=== PATIENT | female | born 1960 | race Caucasian/White ===

== ENCOUNTER 2017-01-22 08:28 | Day surgery (SDC) | payer MEDICARE, MEDICAID ==
[2017-01-22] VITALS (13 sets, daily range): BP systolic 112–132; BP diastolic 67–83; PULSE 67–91; RESP 12–20; O2SAT 96–100
[~2017-01-22] VITALS: Ht 170.2 cm; Wt 97.1 kg
--- NOTE | 2017-01-22 07:50 | PCM.HPANE ---
Patient Data Surgeon Admitting Provider: Attending Provider:Speedy Porter MD Primary Care Physician:Myron Horn MD Other Provider:Erwin Cordova Anesthesia Reason for Visit Rectocele Ht/WT & BMI Height (Feet): 5 Height (Inches): 7 Weight (Kilograms): 101.968 Body Mass Index 35.00 Allergies Coded Allergies: iron (Verified Allergy, Severe, anaphylaxis,respiratory difficulty, ) gabapentin (Verified Adverse Reaction, Severe, itching, 01/22/17) vortioxetine (Verified Adverse Reaction, Severe, extreme anger, 01/22/17) Past Anesthesia History Anesthesia History: Denies:: Anesthesia Reactions, Malignant Hyperthermia Diabetes History Hx Diabetes?: No MRSA MRSA: No Medications Reported Medications Trazodone 100 Mg [id number] Mg PO HS Ref 0 01/19/17 Albuterol HFA (Proair HFA)8.5 Gm Hfa.aer.ad2 Puffs INHALATION Q4H PRN PRN #1 INHALER 01/19/17 oxyCODONE-Acetaminophen 10-325 mg 1 Each Tablet1 Tablet PO Q8H PRN For Pain Ref 0 01/19/17 Ibuprofen 800 Mg [id number] Mg PO TID PRN For Pain Ref 0 01/19/17 Fluticasone Propionate (Flonase Allergy Relief)50 Mcg/Actuation [place].susp9.9 Ml NS DAILY 01/19/17 Fluconazole 150 Mg [id number] Mg PO ONCE #1 TABLET Ref 0 01/19/17 Estradiol 1 Mg Tablet1 Mg PO DAILY Ref 0 01/19/17 Cholecalciferol (Vitamin D3) (Vitamin D)50,000 Unit Beikcrv09,000 Unit PO WEEKLY 01/19/17 Ciclopirox Olamine (Ciclopirox)15 Gm Cream..g.1 Applic TP BID 0.77% 01/19/17 Amphet Asp/Amphet/D-Amphet (Adderall)20 Mg [id number] Mg PO BID Ref 0 01/19/17 Discontinued Reported Medications Therapeutic Multivit/Minerals-Expunged Drug, 1 Ea Tab1 Tab PO DAILY Ref 0 11/28/08 [ginko biloba] No Conflict Check DAILY Ref 0 11/28/08 [neurontin] No Conflict Check PO TID Ref 0 11/28/08 Oxycodone/APAP-Expunged Drug, Do Not Renew! (Percocet 10/325--Expunged Drug, Do Not Renew!)1 Each Tablet2 Tab PO BIDPRN Ref 0 11/28/08 [vicodin] No Conflict Check10 Mg PO TID Ref 0 11/28/08 Alprazolam-Expunged Drug, Do Not Renew! 1 Mg Tablet1 Mg PO TID Ref 0 11/28/08 [estradiol] No Conflict Check PO DAILY Ref 0 11/28/08 History History of ENT Problems?: Yes HEENT History: Positive for:: Sinus Problem (HX SINUSITIS) Denture Type: None Teeth Condition: Within Normal Limits Hx of Heart Problems?: Yes Cardiovascular History: Positive for:: Edema (LEGS) Heart Murmur (PT REPORTS-NOT NOTED ON PHYSICAL EXAM BY SURGEON) Irregular Heartbeat (PT REPORTS) Denies:: Hypertension Other Cardiac History: HX ANEMIA REQUIRING BLOOD & IRON INFUSIONS Hx of Respiratory Problem?: Yes Respiratory History: Denies:: COPD (01/2015 PULM. NOTE/PFT'S WNL) Use of C-PAP Machine Hx Neurologic Problems?: Yes Neurological History: Positive for:: Headaches Denies:: Dementia (HX OF ATTENTION DEFICIT) Hx of GI Problems?: Yes Other GI Pertinent History: C/OF CONSTIPATION Hx of Problems?: Yes Genitourinary History: Positive for:: Urinary Tract Infection (RECENT TX W/ CEPHALEXIN) Female Hx: Denies:: Currently (S/P BTL) Skin History: Denies:: History Skin Disorders? Pressure Ulcers Hx Musculoskeletal Problems?: Yes Musculoskeletal History: Positive for:: Musculoskeletal Trauma (C/OF B/L HIP PAIN CURRENTLY RT>LT) Denies:: Back Injury (C/OF LOWER BACK SPASMS) Hx of Psycho/Social Problems?: Yes Psycho Social History: Positive for:: Anxiety Hx Surgeries?: Yes (BTL,ARNULFO/BSO,PPH,GASTRIC BYPASS,ANAL FISTULOTOMY/ SPHINCTEROTOMY) Hx Any Other Health Problems?: Yes Other History: Denies:: Cancer Endocrine Disease Hospitalization Thyroid Disease History Blood Transfusions: Positive for:: Blood Transfusions Denies:: Blood Transfuse Reaction Hx Diabetes: No Have You Smoked inLast 12 mo: No Stop/Bang S-Snoring: Do You Snore Loudly: No T-Tired: feel tired, fatigued: Yes O-Obsered: Observed not breath: No P-Blood Pressure: treated: No B- Body Mass Index > 35 kg/m2: Yes A- Age over 50: Yes N- Neck Large Circumference: Yes G- Gender Male: No AYANNA Total Score: 4 AYANNA Risk Assessment: High Risk, =/>3 Yes AYANNA Category 2: Yes Risk Assessment Category Category 1A: Patient has history of documented sleep apnea, and HAS NOT received any narcotic, sedative or anesthesia administration during this stay. Category 1B: Patient has history of documented sleep apnea, and HAS received any narcotic , sedative or anesthesia administration during this stay Category 2: Patient has SUSPECTED Obstructive Sleep Apnea, and HAS received any narcotic , sedative or anesthesia administration during this stay. Category 3: Patient has SUSPECTED Obstructive Sleep Apnea and HAS NOT received narcotic, sedative or anesthesia administration during this stay. Category 4: Outpatient in Procedural Areas with known sleep apnea or who screen positive for High Risk via the STOP/BANG questionnaire. Exam Exam General Appearance: Alert, Oriented X3, Cooperative, No Acute Distress HEENT/AIRWAY: MP 2 Lungs: Clear to Auscultation, Normal Air Movement Heart: Exam Unremarkable, Regular Rate/Rhythm, No Murmurs/Rubs/Gallops Plan Impression Patient chart reviewed, patient interviewed and anesthestic plan with risks, benefits, and alternatives discussed, and informed consent obtained. NPO per Anesth. Guidelines: Yes ASA Physical Status: ASA2 Mod Systemic Disease Anesthetic Plan: GA Bene/Risks/Altern/Consents: Yes HP Complete Prior to Induction: Yes Dioni Luciano MD January 22, 2017 07:50
[~2017-01-22 08:28] MED LIST: ALBU8.5H2 INHALATION; AMPH20TA5 PO; CHOL500050 PO; CICL15CR12 TP; CeFAZolin Inj 2 GM in IV Premix 1 EACH IV ONE; ESTR1TAB24 PO; FLUC150T3 PO; FLUT9.9S NS; IBUP800T28 PO; OXYC-466 PO; TRAZ-118 PO
[2017-01-22] MEDS ORDERED: Propofol 10,000 mCg/mL 20 mL Inj ONE (08:29)
[2017-01-22] MEDS ORDERED: Ondansetron 2 mg/mL 2 mL Inj ONE (08:29)
[2017-01-22] MEDS ORDERED: Dexamethasone 4 mg/mL Inj ONE (08:29)
[2017-01-22] MEDS ORDERED: fentaNYL-PF 50 mCg/mL 2 mL Inj ONE ×3 (08:29→11:05)
[2017-01-22] MEDS: Lactated Ringer's 1,000 ML IV SCH ×2 (09:25→11:58)
[2017-01-22] MEDS ORDERED: Vasopressin 20 Unit/mL Inj IM ONE (12:43)
[2017-01-22] MEDS ORDERED: Gentamicin 40 mg/mL 2 mL Inj IRRIGATION ONE (12:44)
--- NOTE | 2017-01-22 14:44 | PCM.ANEP1 ---
Post Anesthesia PACU Phase 1 Assessment Vital Signs Vital Signs Date Time Temp Pulse Resp B/P Pulse Ox O2 Delivery O2 Flow Rate FiO2 01/22/17 09:17 36.7 67 16 125/80 96 Room Air Anesthetic Administered: GA Level of Alertness: Awake, talking BRIDGES's with Equal Strength: Yes Pain: No Nausea or Vomiting: No CV Function & Hydration Stable: Yes Airway Device: Oralpharangeal Airway Oxygen Delivery: Simple Mask Lungs: Clear to Auscultation, Normal Air Movement Dermatome Level: Full Sensation PACU Phase 2 Assessment Complications: No Follow up Care: N/A Patient Instructions Provided: Yes Dioni Luciano MD January 22, 2017 14:44
[2017-01-22] MEDS ORDERED: diphenhydrAMINE 25 mg Capsule PO PRN (14:45)
[2017-01-22] MEDS ORDERED: Ondansetron 2 mg/mL 2 mL Inj IVPUSH PRN ×2 (14:45→15:00)
[2017-01-22] MEDS ORDERED: oxyCODONE-Acetamin 5-325 mg Tablet PO PRN (14:45)
--- NOTE | 2017-01-22 14:49 | PCM.DIMED ---
Discharge Instructions Date of Service January 22, 2017 Dates of Hospitalization Diet Discharge Diet: No restrictions Activity Discharge Activity: No restrictions Call your provider Call your provider for: Fever or Chills, Shortness of breath, Bleeding, Chest pain, Vomitting, Excessive diarrhea, Weakness (unilateral) Patient Instructions Follow-up with PCP in: 2 weeks Speedy Porter MD January 22, 2017 14:49
[2017-01-22] MEDS ORDERED: oxyCODONE-Acetamin 5-325 mg Tablet PO ONE (14:55)
[2017-01-22] MEDS ORDERED: Lactated Ringer's 500 ML IV PRN (14:59)
[2017-01-22] MEDS ORDERED: Lactated Ringer's 1,000 ML IV SCH (14:59)
[2017-01-22] MEDS ORDERED: Dexamethasone 4 mg/mL Inj IVPUSH PRN (15:00)
[2017-01-22] MEDS ORDERED: HYDROmorphone 1 mg/mL Inj IVPUSH PRN (15:00)
[2017-01-22] MEDS ORDERED: EPHEDrine Sulfate 50 mg/mL Inj IVPUSH PRN (15:00)
[2017-01-22] MEDS ORDERED: Atropine 0.4 mg/mL Inj IVPUSH PRN (15:00)
[2017-01-22] MEDS ORDERED: Phenylephrine 10,000 mCg/mL Inj IVPUSH PRN (15:00)
[2017-01-22] MEDS ORDERED: MetoCLOpramide 5 mg/mL 2 mL Inj IVPUSH PRN (15:00)
[2017-01-22] MEDS: fentaNYL-PF 50 mCg/mL 2 mL Inj IVPUSH PRN ×2 (15:15→15:22)
--- NOTE | 2017-01-23 00:17 | OP ---
[address] [address] OPERATIVE REPORT PATIENT: INA CHAPMAN : 1960 MR#: [id number] ADMIT: 01/22/2017 JOB ID: [id number] DATE OF SURGERY: 01/22/2017 PROCEDURE: Posterior colporrhaphy. PREOPERATIVE DIAGNOSIS(ES): Rectocele. POSTOPERATIVE DIAGNOSIS(ES): Rectocele. SURGEON: Speedy Porter MD. ANESTHESIA: General. ESTIMATED BLOOD LOSS: 100 mL. ESTIMATED URINE OUTPUT: 200 mL. FLUIDS: 800 of Ringer lactate. COMPLICATIONS: None. FINDINGS: Normal appearance of the perineum, grade 3 rectocele, vaginal cuff is well suspended, mild cystocele. PROCEDURE IN DETAIL: The patient was brought to the operating room, where she underwent general anesthesia without difficulty. The patient was prepped and draped in the usual surgical fashion. She received preoperative antibiotics. A time-out was performed verifying correct patient, correct procedure. A weighted speculum was placed into the vagina. The vaginal apex was identified and long Ina clamp was placed next to it. Two additional Ina clamps were placed on both sides of the hymenal ring. The area of the rectocele was injected with a solution of vasopressin. Twenty units of vasopressin were diluted in 100 cc of normal saline, total of 15 units of vasopressin were used during the procedure. Using scalpel, a transverse incision was made over the perineal body between two_ Allis clamps. Using Metzenbaum scissors, dissection of the vaginal mucosa was done in the sagittal plane from the perineal body to the apex of the vagina. Sagittal incision was done and the vaginal mucosa was from the underlying endopelvic fascia using Metzenbaum scissors and moist laparotomy sponge. The residual mucosa was trimmed. Using 2-0 Vicryl, a series of plicating sutures were applied reducing the rectocele. It was necessary to apply the second layer of imbricating sutures over the rectocele involving the endopelvic fascia due to the size of the defect. When the rectocele was reduced and the posterior vaginal wall became flat, reapproximation of the vaginal mucosa was provided using 0-Vicryl in a running, locking fashion. The patient had bleeding from the area due to prior scars from prior episiotomy probably. The bleeding was controlled with application of topical FloSeal. When the area was repaired and good hemostasis was achieved, all the instruments were removed. The patient was repositioned back into the supine position. She tolerated the procedure well and was transferred to the recovery room in stable condition. GERONIMO
== END 2017-01-22 23:59 | disposition home or self-care (01) ==
LOC: SAS 08:28
PROVIDERS: ATTEND Legal Medicine
PROC: 0JQC0ZZ Repair Pelvic Region Subcutaneous Tissue and Fascia, Open Approach (ICD-10-PCS; principal; 2017-01-22 10:15)
DX: N81.6 Rectocele (principal); Z90.710 Acquired absence of both cervix and uterus; Z90.722 Acquired absence of ovaries, bilateral; Z90.79 Acquired absence of other genital organ(s); Z79.890 Hormone replacement therapy; J44.9 Chronic obstructive pulmonary disease, unspecified; Z87.440 Personal history of urinary (tract) infections
CPT/HCPCS: 57250; J0690; J1100; J1580; J1885; J2250; J2405; J3010; J7120